=== PATIENT | male | born 1965 | race Caucasian/White ===

== ENCOUNTER 2016-12-07 09:14 | Emergency (ER) | payer OTHER ==
[~2016-12-07] VITALS: Ht 175.3 cm; Wt 84.0 kg
[~2016-12-07 09:14] MED LIST: DICL1GEL TOPICAL
[2016-12-07 09:22] VITALS: BP 163/98; PULSE 100; RESP 16; TEMP 97.8; O2SAT 97
[2016-12-07 09:25] VITALS: BP 163/98; PULSE 100; RESP 16; TEMP 97.8; O2SAT 97
[2016-12-07] MEDS ORDERED: SODIUM CHLORIDE 0.9% FLUSH 10 ML FLUSH IVF PRN (09:45)
[2016-12-07 10:05] VITALS: O2SAT 98
[2016-12-07 10:16] LABS: AUTOMATED NEUTROPHIL # 7.9 TH/MM3 (1.8-7.7); BASOPHIL % 0.5 % (0.0-2.0); EOSINOPHIL # 0.1 TH/MM3 (0-0.4); EOSINOPHIL % 0.7 % (0.0-4.0); HEMATOCRIT 45.2 % (39.0-51.0); HEMO FLAGS DIFF FINAL; LYMPH % 17.3 % (9.0-44.0); LYMPHOCYTE # 1.8 TH/MM3 (1.0-4.8); MEAN CELL VOLUME 90.2 FL (80.0-100.0); MEAN CORPUSCULAR HEMOGLOBIN 31.8 PG (27.0-34.0); MEAN CORPUSCULAR HGB CONC 35.3 % (32.0-36.0); MONO % 6.7 % (0.0-8.0); NEUT % 74.8 % (16.0-70.0); PLATELET COUNT 299 TH/MM3 (150-450); RED BLOOD COUNT 5.01 MIL/MM3 (4.50-5.90); RED CELL DISTRIBUTION WIDTH 11.8 % (11.6-17.2); WHITE BLOOD COUNT 10.6 TH/MM3 (4.0-11.0)
[2016-12-07 10:43] LABS: ANION GAP 7 MEQ/L (5-15); BICARBONATE 29.5 MEQ/L (21.0-32.0); BLOOD UREA NITROGEN 8 MG/DL (7-18); CHLORIDE 104 MEQ/L (98-107); GLOMERULAR FILTRATION RATE 93 ML/MIN (>89); SODIUM (NA) 140 MEQ/L (136-145)
[2016-12-07] MEDS ORDERED: OXYC30TA PO (11:12)
[2016-12-07] MEDS ORDERED: POTASSIUM CHLORIDE 25 MEQ EFFERVESCENT TAB PO ONE (12:30)
[2016-12-07] MEDS ORDERED: SODIUM CHLOR 0.9% 1000 ML INJ 1,000 ML IV ONE (12:30)
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
[2016-12-07 16:10] LABS: AMPHETAMINE, URINE NEG (NEG); BARBITURATES, URINE NEG (NEG); COCAINE, URINE POS (NEG)
[2016-12-07 16:45] VITALS: BP 135/74
== END 2016-12-07 16:49 | disposition home or self-care (01) ==
LOC: NEPE 09:14
DX: R40.4 Transient alteration of awareness (principal); E87.6 Hypokalemia
CPT/HCPCS: 80048; 80307; 85025; 99284; J7030

== ENCOUNTER 2017-09-17 13:38 | Emergency (ER) | payer OTHER ==
[~2017-09-17] VITALS: Ht 175.3 cm; Wt 90.0 kg
[~2017-09-17 13:38] MED LIST changes: -DICL1GEL TOPICAL; +OXYC30TA PO
[2017-09-17 13:58] VITALS: BP 104/56; PULSE 112; RESP 17; TEMP 97.5; O2SAT 97
--- NOTE | 2017-09-17 14:07 | PD ---
HPI Chief Complaint: Skin Problem Time Seen by Provider: 14:03 Travel History International Travel<30 days: No Contact w/Intl Traveler<30days: No Traveled to known affect area: No History of Present Illness HPI 51-year-old male, presents emergency department with erythematous, tender, swollen area on the left lateral forearm which has been developing over the past several days. Patient denies IV drug use or history of MRSA in the past. He states he has had "insect bites" in the past. Patient denies fever, chills, but has pain more than itching in this area which is more swollen today. He denies any other symptoms. No known drug allergies. PFSH Past Medical History Arthritis: Yes Anxiety: Yes Diminished Hearing: No Past Surgical History Other Surgery: Yes (BACK FUSION L SPINE, RIGHT SHOULDER X2) Social History Alcohol Use: Yes (OCC) Tobacco Use: Yes (COCAINE YESTERDAY 12/06/16) Substance Use: Yes Allergies-Medications (Allergen,Severity, Reaction): Coded Allergies: No Known Allergies (Unverified , 12/07/16) Reported Meds & Prescriptions Reported Meds & Active Scripts Active Reported Oxycodone (Oxycodone HCl) 30 Mg Tab 30 Mg PO Q6H PRN Review of Systems Except as stated in HPI: all other systems reviewed are Neg General / Constitutional: No: Fever, Chills Eyes: No: Visual changes HENT: No: Headaches Cardiovascular: No: Chest Pain or Discomfort Respiratory: No: Shortness of Breath Gastrointestinal: No: Abdominal Pain Genitourinary: No: Dysuria Musculoskeletal: No: Pain Skin: Positive Lesions, No Rash Neurologic: No: Weakness Psychiatric: No: Depression Endocrine: No: Polydipsia Hematologic/Lymphatic: No: Easy Bruising Physical Exam Narrative GENERAL: Patient appears in no acute distress per SKIN: Warm and dry. Normal color. Normal turgor. No obvious signs of puncture wounds. Patient has oblong warm, erythematous, indurated lesion to the right lateral forearm measuring 3" x 2", without streaking proximally. No appreciable abscess is noted. HEAD: Atraumatic. Normocephalic. EYES: Pupils equal and round. No scleral icterus. No injection or drainage. ENT: No nasal bleeding or discharge. Mucous membranes pink and moist. Pharynx is clear. Airways patent. NECK: Trachea midline. Supple and nontender CARDIOVASCULAR: Regular rate and rhythm. RESPIRATORY: No accessory muscle use. Clear to auscultation. Breath sounds equal bilaterally. MUSCULOSKELETAL: Extremities without clubbing, cyanosis, or edema. No obvious deformities. Normal range of motion and strength and sensation. Vascular exam is normal. No palpable lymphadenopathy in the left extremity. NEUROLOGICAL: Awake and alert. No obvious cranial nerve deficits. Motor grossly within normal limits. Five out of 5 muscle strength in the arms and legs. Normal speech. PSYCHIATRIC: Appropriate mood and affect; insight and judgment normal. Data Data Last Documented VS Vital Signs Date Time Temp Pulse Resp B/P (MAP) Pulse Ox O2 Delivery O2 Flow Rate FiO2 09/17/17 13:58 97.5 112 17 104/56 (72) 97 Orders Orders Sulfamet-Trimeth Ds 800-160 Mg (Bactrim (09/17/17 14:15) Cephalexin (Keflex) (09/17/17 14:15) Ibuprofen (Motrin) (09/17/17 14:15) [facility] Medical Decision Making Medical Screen Exam Complete: Yes Emergency Medical Condition: Yes Differential Diagnosis Insect bite. Cellulitis. MRSA. Early abscess. Narrative Course No drainable abscesses appreciated at this time. Patient is given Bactrim DS twice daily 10 days. Patient is given Keflex 500 mg 3 times daily 10 days Patient is given ibuprofen 800 mg 3 times daily with food as needed Patient is instructed to use hot compresses to the affected area frequently through the day. Patient is to follow-up if drainable abscess develops. Diagnosis Primary Impression: Cellulitis of right forearm Patient Instructions: Cellulitis (ED), General Instructions, MRSA (Methicillin- Resistant Staphylococcus Aureus) (ED) Additional Instructions: Patient is given Bactrim DS twice daily 10 days. Patient is given Keflex 500 mg 3 times daily 10 days Patient is given ibuprofen 800 mg 3 times daily with food as needed Patient is instructed to use hot compresses to the affected area frequently through the day. Patient is to follow-up if drainable abscess develops. Med/Other Pt SpecificInfo: Prescription(s) given Scripts Sulfamethoxazole-Trimethoprim (Bactrim DS) 800-160 Mg Tab 1 TAB PO BID for Infection, #20 TAB 0 Refills Prov: Rubin Barker MD 09/17/17 Cephalexin (Keflex) 500 Mg Cap 500 MG PO Q8H for Infection, #30 CAP 0 Refills Prov: Rubin Barker MD 09/17/17 Ibuprofen (Ibuprofen) 800 Mg Tab 800 MG PO Q8H Y for Pain/Inflammation, #60 TAB 0 Refills Prov: Rubin Barker MD 09/17/17 Disposition: 01 DISCHARGE HOME Condition: Stable Partha Joe Sep 17, 2017 14:07
[2017-09-17] MEDS ORDERED: IBUP1TAB7 PO (14:12)
[2017-09-17] MEDS ORDERED: CEPH-460 PO (14:12)
[2017-09-17] MEDS ORDERED: BACT800T5 PO (14:12)
[2017-09-17] MEDS ORDERED: IBUPROFEN 800 MG TAB PO ONE (14:15)
[2017-09-17] MEDS ORDERED: CEPHALEXIN MONOHYDRATE 500 MG CAP PO ONE (14:15)
[2017-09-17] MEDS ORDERED: SULFAMETHOXAZOLE-TRIMETHOPRIM DS 800-160 MG TAB PO ONE (14:15)
== END 2017-09-17 14:41 | disposition home or self-care (01) ==
LOC: NEPK 13:38
DX: L03.113 Cellulitis of right upper limb (principal)
CPT/HCPCS: 99283

== ENCOUNTER 2017-09-29 13:34 | Emergency (ER) | payer OTHER ==
[~2017-09-29] VITALS: Ht 175.3 cm; Wt 90.9 kg
[~2017-09-29 13:34] MED LIST changes: +BACT800T5 PO; +CEPH-460 PO; +IBUP1TAB7 PO
[2017-09-29 13:39] VITALS: BP 101/59; PULSE 88; RESP 18; TEMP 97.3; O2SAT 96
[2017-09-29] MEDS ORDERED: LIDOCAINE 1%/EPINEPHrine 1:100,000 SOLN 50 ML VIAL INFIL ONE (14:00)
[2017-09-29] MEDS ORDERED: CLIN300C5 PO (14:01)
--- NOTE | 2017-09-29 14:04 | PD ---
HPI Chief Complaint: Skin Problem Time Seen by Provider: 13:44 Travel History International Travel<30 days: No Contact w/Intl Traveler<30days: No Traveled to known affect area: No History of Present Illness HPI 51-year-old male presents for evaluation area of redness and swelling the right forearm. It started 2 weeks ago. He was seen here on September 17 and diagnosed with cellulitis of the right forearm and prescribed Bactrim and Keflex which she has been using. Reports increased centralized soft tissue swelling that is what prompted evaluation today. Denies any drainage, fevers or chills. Denies any IV drug use. Denies any trauma to the skin over the arm. He has no other complaints. PFSH Past Medical History Arthritis: Yes Anxiety: Yes Diminished Hearing: No Past Surgical History Other Surgery: Yes (BACK FUSION L SPINE, RIGHT SHOULDER X2) Social History Alcohol Use: Yes (OCC) Tobacco Use: Yes (COCAINE YESTERDAY 12/06/16) Substance Use: Yes Allergies-Medications (Allergen,Severity, Reaction): Coded Allergies: No Known Allergies (Unverified , 12/07/16) Reported Meds & Prescriptions Reported Meds & Active Scripts Active Clindamycin (Clindamycin HCl) 300 Mg Cap 300 Mg PO TID Bactrim DS (Sulfamethoxazole-Trimethoprim) 800-160 Mg Tab 1 Tab PO BID Keflex (Cephalexin) 500 Mg Cap 500 Mg PO Q8H Ibuprofen 800 Mg Tab 800 Mg PO Q8H PRN Reported Oxycodone (Oxycodone HCl) 30 Mg Tab 30 Mg PO Q6H PRN Review of Systems Except as stated in HPI: all other systems reviewed are Neg Physical Exam Narrative GENERAL: Well-developed well-nourished male in no acute distress SKIN: Warm and dry. There is a fluctuant abscess in the right forearm without drainage. HEAD: Atraumatic. Normocephalic. CARDIOVASCULAR: Regular rate and rhythm. No murmur appreciated. RESPIRATORY: No accessory muscle use. Clear to auscultation. Breath sounds equal bilaterally. MUSCULOSKELETAL: No obvious deformities. No clubbing. No cyanosis. No edema. Data Data Last Documented VS Vital Signs Date Time Temp Pulse Resp B/P (MAP) Pulse Ox O2 Delivery O2 Flow Rate FiO2 09/29/17 13:39 97.3 88 18 101/59 (73) 96 Orders Orders Lidocai-Epi 1%-1:100,000 Inj (Xylocaine- (09/29/17 14:00) Wound Culture And Gram Stain (09/29/17 13:47) MDM Medical Decision Making Medical Screen Exam Complete: Yes Emergency Medical Condition: Yes Medical Record Reviewed: Yes Differential Diagnosis Abscess, cellulitis, sarcoma, cyst Narrative Course The patient verbally consented to incision and drainage of the right forearm abscess. Wound culture was performed. Pending wound culture results the patient will be started on clindamycin. Procedures Procedure Narrative INCISION AND DRAINAGE OF ABSCESS: The area was prepped and was sterilely draped. A subcutaneous wheal of 1% Xylocaine with epinephrine] with a total number 5 mL was used to anesthetize the area. The area was properly anesthetized. A number 11 scalpel was used to make a 1.5 -cm incision across the area of the abscess. Cultures were obtained. The abscess was drained an irrigated with normal saline. Diagnosis Primary Impression: Abscess of right forearm Additional Instructions: Medication as prescribed. Wash the area with warm soap and water 2-3 times daily. Follow-up in 2 weeks with primary care physician. Return for any acutely new or worsening symptoms. Med/Other Pt SpecificInfo: Prescription(s) given, Wound Care Scripts Clindamycin (Clindamycin) 300 Mg Cap 300 MG PO TID for Infection, #30 CAP 0 Refills Prov: Douglas Hernández MD 09/29/17 Disposition: 01 DISCHARGE HOME Condition: Stable Aneudy Sanchez Sep 29, 2017 14:04
== END 2017-09-29 14:32 | disposition home or self-care (01) ==
LOC: NEPK 13:34
DX: L02.413 Cutaneous abscess of right upper limb (principal)
CPT/HCPCS: 10060; 86403; 87070; 87186

== ENCOUNTER 2017-12-18 16:24 | Inpatient (IN) ==
[2017-12-18] MEDS ORDERED: Ibuprofen 600 MG Tablet PO ONE (17:00)
[2017-12-18] MEDS ORDERED: Vancomycin Inj 1,000 MG in Sodium Chlor 0.9% Inj 250 ML IV.SIG STA (17:00)
[2017-12-18] MEDS ORDERED: Piperacil/Tazo 4.5 GM Premix 4.5 GM/100 ML BAG IV.SIG STA (17:00)
--- NOTE | 2017-12-18 17:10 | ED ---
HPI General Chief complaint: Skin/Abscess/Foreign Body Stated complaint: Spider bite Time Seen by Provider: 12/18/17 17:00 Source: patient Mode of arrival: ambulatory Limitations: no limitations History of Present Illness HPI narrative: Per patient he felt a sting last night he swiped at the area over his left forearm and noticed that it was red in appearance. Patient stated that he went to sleep and then when he woke up this morning he noticed that his forearm area started to swell, and later on throughout the day he started to notice that started to come to ahead and that he was growing in size very quickly MD complaint: insect bite/sting and abscess/boil Onset (ago): day(s) (1) Tetanus Immunization: <5 Years Location: LUE (Forearm left) Severity: moderate Severity scale (1-10): 8 Quality: sharp Pain Consistency: constant Relieving factors: none Exacerbating factors: none Context: other Associated symptoms: fever, rigors and myalgias Treatments prior to arrival: none Related Data Home Medications Medication Instructions Recorded Confirmed No Known Home Medications 12/18/17 12/18/17 Allergies Allergy/AdvReac Type Severity Reaction Status Date / Time No Known Allergies Allergy Verified 12/18/17 16:57 Review of Systems Except as stated in HPI: all other systems reviewed are negative PMFSH History History Provided By: Patient Medical History Medical History Patient denies medical problems (Acute) Surgical History Surgical History History of shoulder surgery (Acute) History of spinal surgery (Acute) Social History Social History Substance History: No History of Abuse Second Hand Smoke Exposure: Yes Smoking Status: Current some day smoker Tobacco Type: Cigarettes How Often Do You Have a Drink Containing Alcohol: Monthly or less Recent Travel in [facility] within the Last 8 Weeks: No Recent Out of Country Travel within the Last 8 Weeks: No Exam Narrative Exam Narrative: GENERAL: Well-nourished, well-developed patient in no apparent distress. SKIN: Warm and dry. HEAD: Atraumatic. Normocephalic. EYES: Pupils equal and round. No scleral icterus. No injection or drainage. ENT: No nasal bleeding or discharge. Mucous membranes pink and moist. NECK: Trachea midline. No JVD. CARDIOVASCULAR: Regular rate and rhythm. no rubs or gallops RESPIRATORY: No accessory muscle use. Clear to auscultation. Breath sounds equal bilaterally. GASTROINTESTINAL: Abdomen soft, non-tender, nondistended. No rebound or guarding MUSCULOSKELETAL: Extremities without clubbing, cyanosis, or edema. No obvious deformities. And near the left antecubital fossa chest inferior to it is an area of erythema, as well as an area of induration with a diameter of 10 cm, and an area about the size of a quarter that is necrotic in appearance.... No palpable crepitus, neg [place] sign NEUROLOGICAL: Awake and alert. No obvious cranial nerve deficits. Motor grossly within normal limits. Five out of 5 muscle strength in the arms and legs. Normal speech. PSYCHIATRIC: Appropriate mood and affect; insight and judgment normal. Course Initial Documented Vital Signs Temperature 102.1 F H 12/18/17 16:36 Pulse Rate 124 H 12/18/17 16:36 Respiratory Rate 20 12/18/17 16:36 Blood Pressure 128/62 12/18/17 16:36 Pulse Oximetry 98 12/18/17 16:36 Last Documented Vital Signs Temperature 99.1 F 12/18/17 18:19 Pulse Rate 108 H 12/18/17 18:19 Respiratory Rate 18 12/18/17 18:19 Blood Pressure 138/81 12/18/17 18:19 Pulse Oximetry 99 12/18/17 18:19 Critical Care Time Critical Care Time: Yes Total Critical Care Time: 30 Attestation: Aggregate critical care time was 30 minutes. Time to perform other separately billable procedures was not included in the critical care time. My time did not include minutes spent treating any other patients simultaneously or on activities that did not directly contribute to the patient's treatment. The services I provided to this patient were to treat and/or prevent clinically significant deterioration that could result in: [Septic shock, organ dysfunction, permanent disability, ] I provided critical care services requiring my management, as noted below: Chart data review, documentation time, medication orders and management, vital sign assessments/reviewing monitor data, ordering and reviewing lab tests, ordering and interpreting/reviewing x-rays and diagnostic studies, care of the patient and discussion of the patient with the admitting physicians. Medical Decision Making Differential Diagnosis Differential Diagnosis: Sepsis versus cellulitis versus Medical Records Medical records reviewed: Yes I reviewed the patient's medical records. Lab Data Lab results reviewed: Yes I reviewed the patient's lab results. Result diagrams: 12/18/17 17:10 12/18/17 17:10 Lab Results 12/18/17 12/18/17 12/18/17 Range/Units 17:10 17:10 17:10 WBC 14.4 H (4.0-11.0) th/mm3 RBC 4.62 (4.50-5.90) mil/mm3 Hgb 14.3 (13.0-17.0) gm/dL Hct 42.1 (39.0-51.0) % MCV 91.1 (80.0-100.0) fL MCH 31.0 (27.0-34.0) pg MCHC 34.0 (32.0-36.0) % RDW 13.2 (11.6-17.2) % Plt Count 209 (150-450) th/mm3 MPV 8.1 (7.0-11.0) fL Neut % (Auto) 79.5 H (16.0-70.0) % Lymph % (Auto) 8.0 L (9.0-44.0) % [place] % (Auto) 11.9 H (0.0-8.0) % Eos % (Auto) 0.1 (0.0-4.0) % Baso % (Auto) 0.5 (0.0-2.0) % Neut # (Auto) 11.5 H (1.8-7.7) th/mm3 Lymph # (Auto) 1.2 (1.0-4.8) th/mm3 [place] # (Auto) 1.7 H (0.0-0.9) th/mm3 Eos # (Auto) 0.0 (0.0-0.4) th/mm3 Baso # (Auto) 0.1 (0.0-0.2) th/mm3 WBC Differential . Differential Comment Auto diff final Sodium 136 (136-145) meq/L Potassium 3.5 (3.5-5.1) meq/L Chloride 101 (98-107) meq/L Carbon Dioxide 26.3 (21.0-32.0) meq/L Anion Gap 9 (5-15) meq/L BUN 9 (7-18) mg/dL Creatinine 1.14 (0.60-1.30) mg/dL Estimated GFR 67 L (>89) mL/min POC Glucose (68-110) mg/dl Random Glucose 99 (74-106) mg/dL Lactic Acid 2.1 H (0.4-2.0) mmol/L Calcium 8.7 (8.5-10.1) mg/dL Total Bilirubin 0.8 (0.2-1.0) mg/dL AST 170 H (15-37) U/L ALT 416 H (12-78) U/L Alkaline Phosphatase 75 (45-117) U/L Total Protein 6.6 (6.4-8.2) g/dL Albumin 3.1 L (3.4-5.0) g/dL 12/18/17 Range/Units 17:55 WBC (4.0-11.0) th/mm3 RBC (4.50-5.90) mil/mm3 Hgb (13.0-17.0) gm/dL Hct (39.0-51.0) % MCV (80.0-100.0) fL MCH (27.0-34.0) pg MCHC (32.0-36.0) % RDW (11.6-17.2) % Plt Count (150-450) th/mm3 MPV (7.0-11.0) fL Neut % (Auto) (16.0-70.0) % Lymph % (Auto) (9.0-44.0) % [place] % (Auto) (0.0-8.0) % Eos % (Auto) (0.0-4.0) % Baso % (Auto) (0.0-2.0) % Neut # (Auto) (1.8-7.7) th/mm3 Lymph # (Auto) (1.0-4.8) th/mm3 [place] # (Auto) (0.0-0.9) th/mm3 Eos # (Auto) (0.0-0.4) th/mm3 Baso # (Auto) (0.0-0.2) th/mm3 WBC Differential Differential Comment Sodium (136-145) meq/L Potassium (3.5-5.1) meq/L Chloride (98-107) meq/L Carbon Dioxide (21.0-32.0) meq/L Anion Gap (5-15) meq/L BUN (7-18) mg/dL Creatinine (0.60-1.30) mg/dL Estimated GFR (>89) mL/min POC Glucose 119 H (68-110) mg/dl Random Glucose (74-106) mg/dL Lactic Acid (0.4-2.0) mmol/L Calcium (8.5-10.1) mg/dL Total Bilirubin (0.2-1.0) mg/dL AST (15-37) U/L ALT (12-78) U/L Alkaline Phosphatase (45-117) U/L Total Protein (6.4-8.2) g/dL Albumin (3.4-5.0) g/dL Imaging Data Radiologist's impression: Chest X-Ray 12/18/17 17:00 CONCLUSION: No evidence of acute cardiopulmonary process. Discharge Plan Discharge Disposition Patient Disposition: 30 Still Patient Discharge Condition Condition: Stable Discharge Details Diagnosis: Cellulitis, SIRS (systemic inflammatory response syndrome) Physicians Team ED Provider: Rubin Barker Rxs /Orders / Referrals /Forms Prescriptions: No Action No Known Home Medications RF: 0 Status ED Status: With Doctor
[2017-12-18 17:47] LABS: Baso # (Auto) 0.1 th/mm3 (0.0-0.2); Baso % (Auto) 0.5 % (0.0-2.0); Eos % (Auto) 0.1 % (0.0-4.0); Hematocrit 42.1 % (39.0-51.0); Hemoglobin 14.3 gm/dL (13.0-17.0); Lymph # (Auto) 1.2 th/mm3 (1.0-4.8); Mean Corpuscular Volume 91.1 fL (80.0-100.0); Mean Platelet Volume 8.1 fL (7.0-11.0); Mono # (Auto) 1.7 th/mm3 (0.0-0.9); Mono % (Auto) 11.9 % (0.0-8.0); Neut # (Auto) 11.5 th/mm3 (1.8-7.7); Neut % (Auto) 79.5 % (16.0-70.0); Platelet Count 209 th/mm3 (150-450); Red Blood Count 4.62 mil/mm3 (4.50-5.90); Red Cell Distribution Width 13.2 % (11.6-17.2); White Blood Count 14.4 th/mm3 (4.0-11.0)
[2017-12-18 18:09] LABS: Alanine Aminotransferase 416 U/L (12-78); Albumin 3.1 g/dL (3.4-5.0); Anion Gap 9 meq/L (5-15); Aspartate Aminotransferase 170 U/L (15-37); Blood Urea Nitrogen 9 mg/dL (7-18); Calcium 8.7 mg/dL (8.5-10.1); Carbon Dioxide 26.3 meq/L (21.0-32.0); Chloride 101 meq/L (98-107); Glomerular Filtration Rate 67 mL/min (>89); Glucose,Random 99 mg/dL (74-106); Potassium 3.5 meq/L (3.5-5.1); Sodium 136 meq/L (136-145)
--- NOTE | 2017-12-18 18:09 | XR ---
EXAM DATE: 12/18/2017 6:06 PM EDT AGE/SEX: 52 years / Male INDICATIONS: Fever. CLINICAL DATA: This is the patient's initial encounter. Patient reports that signs and symptoms have been present for 1 day and indicates a pain score of 0/10. MEDICAL/SURGICAL HISTORY: None. . L-spine. Right shoulder. [place] [facility] [place]. . FINDINGS: A single AP view of the chest demonstrates the lungs to be symmetrically aerated without evidence of mass, infiltrate or effusion. The cardiomediastinal contours are unremarkable. Osseous structures a re intact. CONCLUSION: No evidence of acute cardiopulmonary process. Electronically signed by: Brandon Arguelles MD 12/18/2017 6:08 PM EDT
[2017-12-18 18:12] LABS: Alkaline Phosphatase 75 U/L (45-117); Total Protein 6.6 g/dL (6.4-8.2)
[2017-12-18] MEDS: Sod Chloride 0.9% Inj 1,000 ML IV.CONT SCH ×2 (18:49→19:12)
[2017-12-18] MEDS ORDERED: Acetaminophen 325 MG Tablet PO PRN (19:03)
[2017-12-18] MEDS ORDERED: Bisacodyl 10 MG Supp RECTAL PRN (19:03)
--- NOTE | 2017-12-18 19:06 | P.HPIM ---
History of Present Illness Primary Care Physician: No Primary Care Physician History of Present Illness: This is a 52-year-old male with no reported PMH who presented to the ER with complaints of left arm swelling/redness x1 day. States he was bitten by a spider yesterday, now w/ significant redness/swelling and pustule w/ drainage. Denies fever or chills. Waldemar IVDU. On arrival, BP 128/62, HR 124, O2 sat 98% on RA, Temp 102.1. WBC 14.4. Chemistry essentially unremarkable except for GFR 67. Lactic Acid 2.1. LFTs elevated, new in comparison to labs from 2015. S/p Blood/Wound Cultures, Vanc/Zosyn. - Diagnosis (1) Sepsis (2) Cellulitis (3) Elevated LFTs Review of Systems All other systems reviewed negative except as stated in [facility] - History History Provided By: Patient - Medical History Medical History: Medical History (Last Reviewed 12/18/17 @ 17:04 by Rubin Barker) Patient denies medical problems - Surgical History Surgical History: Surgical History (Last Reviewed 12/18/17 @ 17:04 by Rubin Barker) History of shoulder surgery History of spinal surgery - Tobacco History Second Hand Smoke Exposure: Yes Tobacco Use In Past 30 Days: Yes Smoking Status: Current some day smoker Tobacco Type: Cigarettes - Alcohol History How Often Do You Have a Drink Containing Alcohol: Monthly or less - Substance Use History Substance History: No History of Abuse - Travel History Recent Travel in the [place] Within the Last 8 Weeks: No Recent Travel Out of the Country Within the Last 8 Weeks: No - Immunization History Tetanus Immunization: <5 Years Hx Influenza Vaccine This Season: No Medications and Allergies Active Medications: Active Medications Acetaminophen (Tylenol) 650 mg PO Q4H PRN PRN Reason: Temp > 100.4 Hydrocodone Bitart/Acetaminophen ([place] 5/325) 1 tab PO Q4H PRN PRN Reason: PAIN 3-5 Al Hydroxide/Mg Hydroxide (Milk Of Magnesia Liq) 30 ml PO Q12H PRN PRN Reason: Mild Constipation Bisacodyl (Dulcolax Supp) 10 mg RECTAL DAILY PRN PRN Reason: SEVERE CONSITIPATION Sodium Chloride (Ns Inj) 1,000 mls @ 100 mls/hr IV.CONT .Q10H [facility] Last Admin: 12/18/17 18:49 Dose: 100 mls/hr Cefepime HCl 1,000 mg/ Sodium (Chloride) 100 mls @ 200 mls/hr IV.SIG Q12H [facility] Sodium Chloride (Ns Inj) 1,000 mls @ 100 mls/hr IV.CONT .Q10H [facility] Pharmacy Profile Note (Vancomycin Consult Pharmacy) 0 mls @ 0 mls/hr OTHER UNSCH [facility] Lactulose (Lactulose Liq) 30 ml PO DAILY PRN PRN Reason: SEVERE CONSITIPATION Metoclopramide HCl (Reglan Inj) 5 mg IV.PUSH Q6HR PRN; Protocol PRN Reason: NAUSEA OR VOMITING Morphine Sulfate (Morphine Inj) 2 mg IV.PUSH Q4H PRN PRN Reason: PAIN 6-10 Senna/Docusate Sodium (Chikis-Colace) 1 tab PO BID [facility] Sennosides (Senokot) 17.2 mg PO Q12H PRN PRN Reason: Moderate Constipation Temazepam (Restoril) 15 mg PO HS PRN PRN Reason: INSOMNIA Allergies Allergy/AdvReac Type Severity Reaction Status Date / Time No Known Allergies Allergy Verified 12/18/17 16:57 Home Medications Medication Instructions Recorded Confirmed Type No Known Home Medications 12/18/17 12/18/17 History Exam Vital signs: Vital Signs 12/18/17 16:36 12/18/17 17:00 12/18/17 18:19 Temperature 102.1 F H 99.1 F Pulse Rate 124 H 116 H 108 H Respiratory Rate 20 18 Blood Pressure 128/62 138/81 Pulse Oximetry 98 98 99 Intake & Output 12/18/17 12/18/17 12/19/17 06:59 18:59 06:59 Intake Total 100 / 100 Balance 100 / 100 Weight 95.254 kg Intake: IV 100 / 100 Zosyn 4.5 GM Premix 4.5 gm In 100 / 100 100 ml @ 200 mls/hr IV.SIG STAT STA Rx#:[id number] Narrative: PE: GENERAL: Middle-aged white male in no acute distress. HEENT: PERRLA, EOMI. No scleral icterus or conjunctival pallor. No lid lag or facial droop. CARDIOVASCULAR: Regular rate and rhythm. No obvious murmurs to auscultation. No chest tenderness to palpation. RESPIRATORY: No obvious rhonchi or wheezing. Clear to auscultation. Breath sounds equal bilaterally. GASTROINTESTINAL: Abdomen soft, non-tender, nondistended. BS normal. MUSCULOSKELETAL: Extremities without clubbing, cyanosis, or edema. No obvious deformities. LUE w/ draining pustule, left antecubital region, foul swelling, + surrounding erythema/edema. Pulses intact. NEUROLOGICAL: Awake, alert and oriented x4. No focal neurologic deficits. Moving both upper and lower extremities spontaneously. Results - Labs CBC & Chem 7: 12/18/17 17:10 12/18/17 17:10 Labs: Short CBC 12/18/17 Range/Units 17:10 WBC 14.4 H (4.0-11.0) th/mm3 Hgb 14.3 (13.0-17.0) gm/dL Hct 42.1 (39.0-51.0) % Plt Count 209 (150-450) th/mm3 BMP 12/18/17 17:10 Sodium 136 Potassium 3.5 Chloride 101 Carbon Dioxide 26.3 BUN 9 Creatinine 1.14 Calcium 8.7 Liver Function 12/18/17 Range/Units 17:10 Total Bilirubin 0.8 (0.2-1.0) mg/dL AST 170 H (15-37) U/L ALT 416 H (12-78) U/L Alkaline Phosphatase 75 (45-117) U/L Albumin 3.1 L (3.4-5.0) g/dL - Imaging Impressions Chest X-Ray 12/18/17 17:00 CONCLUSION: No evidence of acute cardiopulmonary process. Caprini VTE Risk Assessment Caprini VTE Risk Assessment: No/Low Risk (score <= 1) Caprini Risk Assessment Model: Point Value = 1 Point Value = 2 Point Value = 3 Point Value = 5 Age 41-60 Minor surgery BMI > 25 kg/m2 Swollen legs Varicose veins or History of unexplained or recurrent spontaneous Oral contraceptives or hormone replacement Sepsis (< 1 month) Serious lung disease, including pneumonia (< 1 month) Abnormal pulmonary function Acute myocardial infarction Congestive heart failure (< 1 month) History of inflammatory bowel disease Medical patient at bed rest Age 61-74 Arthroscopic surgery Major open surgery (> 45 min) Laparoscopic surgery (> 45 min) Malignancy Confined to bed (> 72 hours) Immobilizing plaster cast Central venous access Age >= 75 History of VTE Family history of VTE Factor V Leiden Prothrombin [id number] Lupus anticoagulant Anticardiolipin antibodies Elevated serum homocysteine Heparin-induced thrombocytopenia Other congenital or acquired thrombophilia Stroke (< 1 month) Elective arthroplasty Hip, pelvis, or leg fracture Acute spinal cord injury (< 1 month) Prophylaxis Regimen: Total Risk Factor Score Risk Level Prophylaxis Regimen 0-1 Low Early ambulation 2 Moderate Order ONE of the following: *Sequential Compression Device (SCD) *Heparin 5000 units SQ BID 3-4 Higher Order ONE of the following medications: *Heparin 5000 units SQ TID *Enoxaparin/Lovenox 40 mg SQ daily (WT < 150 kg, CrCl > 30 mL/min) *Enoxaparin/Lovenox 30 mg SQ daily (WT < 150 kg, CrCl > 10-29 mL/min) *Enoxaparin/Lovenox 30 mg SQ BID (WT < 150 kg, CrCl > 30 mL/min) AND/OR *Sequential Compression Device (SCD) 5 or more Highest Order ONE of the following medications: *Heparin 5000 units SQ TID (Preferred with Epidurals) *Enoxaparin/Lovenox 40 mg SQ daily (WT < 150 kg, CrCl > 30 mL/min) *Enoxaparin/Lovenox 30 mg SQ daily (WT < 150 kg, CrCl > 10-29 mL/min) *Enoxaparin/Lovenox 30 mg SQ BID (WT < 150 kg, CrCl > 30 mL/min) AND *Sequential Compression Device (SCD) Assessment and Plan - Assessment (1) Sepsis Code(s): A41.9 - Sepsis, unspecified organism Status: Acute (2) Cellulitis Code(s): L03.90 - Cellulitis, unspecified Status: Acute (3) Elevated LFTs Code(s): R94.5 - Abnormal results of liver function studies Status: Acute - Plan A/P: 1. Sepsis: Temp 102.1, HR 120's, WBC 14, Lactic Acid 2.1, S/p Blood/Wound Cultures, IV Vanc/Zosyn, follow up cultures, continue IV Abx, CXR w/ no acute findings, images reviewed by me. Check U/a to eval for underlying UTI. 2. Cellulitis: LUE. +pustule, erythema/edema x1 day after being bitten by spider per patient. Follow up cultures, continue w/ IV Abx, analgesics/ antiemetics as needed. May need Gen Sx consult for I&D if no improvement. 3. Elevated LFTs: New in comparison to previous labs from 2016, check Hep panel, UDS, repeat labs in am. 4. DVT Prophylaxis: SCD/Teds 5. Social work for d/c planning as needed 6. Case discussed w/ ER physician at length, labs/records/imaging reviewed by me. (2) Cellulitis Qualifiers: Site of cellulitis: extremity Site of cellulitis of extremity: upper extremity Laterality: left Qualified Code(s): L03.114 - Cellulitis of left upper limb
[2017-12-18] MEDS ORDERED: Vancomycin Consult Pharmacy 1 EACH OTHER SCH (20:00)
[2017-12-18] MEDS: Senna/Docusate Sodium 8.6/50 MG Tablet PO SCH (21:35)
[2017-12-18] MEDS ORDERED: Vancomycin Inj 1,000 MG in Sodium Chlor 0.9% Inj 250 ML IV.SIG ONE (23:00)
[2017-12-19 00:03] LABS: Bilirubin,Urine Negative (Negative); Clarity,Urine Clear (Clear); Color,Urine Straw (Yellw/Straw); Glucose,Urine (UA) Negative (Negative); Leukocyte Esterase,Urine Negative (Negative); Nitrite,Urine Negative (Negative); Specific Gravity,Urine 1.002 (1.002-1.035)
[2017-12-19 00:13] LABS: Amphetamine Screen,Urine Pos (Neg); Barbiturate Screen,Urine Neg (Neg); Cannabinoid Screen,Urine Neg (Neg); Cocaine Screen,Urine Neg (Neg)
[2017-12-19 00:20] LABS: Opiate Screen,Urine Neg (Neg)
[2017-12-19 00:58] LABS: Baso # (Auto) 0.1 th/mm3 (0.0-0.2); Baso % (Auto) 0.5 % (0.0-2.0); Eos # (Auto) 0.1 th/mm3 (0.0-0.4); Eos % (Auto) 0.6 % (0.0-4.0); Hematocrit 41.7 % (39.0-51.0); Hemoglobin 14.2 gm/dL (13.0-17.0); Lymph # (Auto) 1.5 th/mm3 (1.0-4.8); Lymph % (Auto) 11.3 % (9.0-44.0); Mean Corpuscular HGB Conc 34.1 % (32.0-36.0); Mean Corpuscular Hemoglobin 30.7 pg (27.0-34.0); Mean Corpuscular Volume 89.9 fL (80.0-100.0); Mean Platelet Volume 7.8 fL (7.0-11.0); Mono # (Auto) 1.4 th/mm3 (0.0-0.9); Mono % (Auto) 10.4 % (0.0-8.0); Neut # (Auto) 10.5 th/mm3 (1.8-7.7); Neut % (Auto) 77.2 % (16.0-70.0); Platelet Count 201 th/mm3 (150-450); Red Blood Count 4.64 mil/mm3 (4.50-5.90); White Blood Count 13.6 th/mm3 (4.0-11.0)
[2017-12-19 01:21] LABS: Alanine Aminotransferase 383 U/L (12-78); Anion Gap 6 meq/L (5-15); Aspartate Aminotransferase 146 U/L (15-37); Blood Urea Nitrogen 7 mg/dL (7-18); Calcium 8.5 mg/dL (8.5-10.1); Carbon Dioxide 29.3 meq/L (21.0-32.0); Chloride 108 meq/L (98-107); Glomerular Filtration Rate 81 mL/min (>89); Glucose,Random 114 mg/dL (74-106); Potassium 3.2 meq/L (3.5-5.1); Sodium 143 meq/L (136-145)
[2017-12-19 01:23] LABS: Alkaline Phosphatase 72 U/L (45-117); Total Protein 6.6 g/dL (6.4-8.2)
[2017-12-19 02:08] LABS: Hepatitis A IgM Antibody Nonreactive (Nonreactive); Hepatitits B Surface Antigen Nonreactive (Nonreactive)
[2017-12-19] MEDS: Sod Chloride 0.9% Inj 1,000 ML IV.CONT SCH ×3 (04:40→15:48)
[2017-12-19] MEDS: Vancomycin Inj 1,750 MG in Sodium Chlor 0.9% Inj 500 ML IV.SIG SCH (10:11)
[2017-12-19] MEDS: Senna/Docusate Sodium 8.6/50 MG Tablet PO SCH ×2 (10:11→20:38)
[2017-12-19] MEDS ORDERED: Lidocaine PF 1% Inj 5 ML Syringe INFILTRATN ONE (12:00)
[2017-12-19] MEDS ORDERED: Succinylcholine Inj 100 MG/5 ML Syringe IV.PUSH ONE (12:00)
--- NOTE | 2017-12-19 13:16 | P.PNIM ---
Subjective Interval history: Patient reports persistent left forearm swelling and pain. Left forearm wound draining foul-smelling purulence. No fevers. He wants to eat. Physical Exam Vital signs: Vital Signs 12/18/17 16:36 12/18/17 17:00 12/18/17 18:19 Temperature 102.1 F H 99.1 F Pulse Rate 124 H 116 H 108 H Respiratory Rate 20 18 Blood Pressure 128/62 138/81 Pulse Oximetry 98 98 99 12/18/17 19:40 12/18/17 22:00 12/18/17 23:41 Temperature 98.1 F Pulse Rate 74 64 Respiratory Rate 16 18 Blood Pressure 112/59 L Pulse Oximetry 95 12/19/17 00:00 12/19/17 03:41 12/19/17 04:00 Temperature 97.8 F 97.5 F L Pulse Rate 72 59 L 86 Respiratory Rate 18 18 Blood Pressure 117/57 L 109/8 L Pulse Oximetry 96 95 12/19/17 08:00 12/19/17 11:47 Temperature 98.0 F 98.2 F Pulse Rate 71 78 Respiratory Rate 18 20 Blood Pressure 115/63 110/67 Pulse Oximetry 96 95 Intake & Output 12/18/17 12/19/17 12/19/17 18:59 06:59 18:59 Intake Total 100 / 100 1250 / 1250 Output Total 500 / 500 Balance 100 / 100 750 / 750 Weight 95.254 kg Intake: IV 100 / 100 1250 / 1250 NS Inj 1,000 ML @ 100 mls/hr IV 1000 / 1000 .CONT .Q10H [facility] Rx#:[id number] Zosyn 4.5 GM Premix 4.5 gm In 100 / 100 100 ml @ 200 mls/hr IV.SIG STAT STA Rx#:[id number] Output: Urine 500 / 500 Narrative: GENERAL: Patient appears older than stated age SKIN: Left forearm has a quater size necrotic wound, draining foul smelling pus. CARDIOVASCULAR: Normal rate and regular rhythm without murmurs, gallops, or rubs. RESPIRATORY: Good respiratory efforts. Breath sounds equal and clear to auscultation bilaterally. Results - Labs CBC & Chem 7: 12/19/17 00:38 12/19/17 00:38 Laboratory Results - last 24 hr 12/18/17 12/18/17 12/18/17 17:10 17:10 17:10 WBC 14.4 H RBC 4.62 Hgb 14.3 Hct 42.1 MCV 91.1 MCH 31.0 MCHC 34.0 RDW 13.2 Plt Count 209 MPV 8.1 Neut % (Auto) 79.5 H Lymph % (Auto) 8.0 L [place] % (Auto) 11.9 H Eos % (Auto) 0.1 Baso % (Auto) 0.5 Neut # (Auto) 11.5 H Lymph # (Auto) 1.2 [place] # (Auto) 1.7 H Eos # (Auto) 0.0 Baso # (Auto) 0.1 WBC Differential . Differential Comment Auto diff final Sodium 136 Potassium 3.5 Chloride 101 Carbon Dioxide 26.3 Anion Gap 9 BUN 9 Creatinine 1.14 Estimated GFR 67 L POC Glucose Random Glucose 99 Lactic Acid 2.1 H Calcium 8.7 Total Bilirubin 0.8 AST 170 H ALT 416 H Alkaline Phosphatase 75 Total Protein 6.6 Albumin 3.1 L Urine Color Urine Clarity Urine pH Ur Specific [place] Urine Protein Urine Glucose (UA) Urine Ketones Urine Occult Blood Urine Nitrate Urine Bilirubin Urine Urobilinogen Ur Leukocyte Esterase Urine RBC Urine WBC Micro UA Comment Urine Culture Comments Urine Opiates Screen Ur Barbiturates Screen Ur Amphetamines Screen U Benzodiazepines Scrn Urine Cocaine Screen U Cannabinoids Screen Hepatitis A IgM Ab Hep Bs Antigen Hep B Core IgM Ab Hep C IgG Ab 12/18/17 12/18/17 12/18/17 17:55 23:00 23:00 WBC RBC Hgb Hct MCV MCH MCHC RDW Plt Count MPV Neut % (Auto) Lymph % (Auto) [place] % (Auto) Eos % (Auto) Baso % (Auto) Neut # (Auto) Lymph # (Auto) [place] # (Auto) Eos # (Auto) Baso # (Auto) WBC Differential Differential Comment Sodium Potassium Chloride Carbon Dioxide Anion Gap BUN Creatinine Estimated GFR POC Glucose 119 H Random Glucose Lactic Acid Calcium Total Bilirubin AST ALT Alkaline Phosphatase Total Protein Albumin Urine Color Straw Urine Clarity Clear Urine pH 6.0 Ur Specific [place] 1.002 Urine Protein Negative Urine Glucose (UA) Negative Urine Ketones Negative Urine Occult Blood Negative Urine Nitrate Negative Urine Bilirubin Negative Urine Urobilinogen Less than 2 Ur Leukocyte Esterase Negative Urine RBC Less than 1 Urine WBC Less than 1 Micro UA Comment Culture not ind Urine Culture Comments Culture not ind Urine Opiates Screen Neg Ur Barbiturates Screen Neg Ur Amphetamines Screen Pos H U Benzodiazepines Scrn Neg Urine Cocaine Screen Neg U Cannabinoids Screen Neg Hepatitis A IgM Ab Hep Bs Antigen Hep B Core IgM Ab Hep C IgG Ab 12/19/17 12/19/17 12/19/17 00:38 00:38 00:38 WBC 13.6 H RBC 4.64 Hgb 14.2 Hct 41.7 MCV 89.9 MCH 30.7 MCHC 34.1 RDW 13.0 Plt Count 201 MPV 7.8 Neut % (Auto) 77.2 H Lymph % (Auto) 11.3 [place] % (Auto) 10.4 H Eos % (Auto) 0.6 Baso % (Auto) 0.5 Neut # (Auto) 10.5 H Lymph # (Auto) 1.5 [place] # (Auto) 1.4 H Eos # (Auto) 0.1 Baso # (Auto) 0.1 WBC Differential . Differential Comment Auto diff final Sodium 143 Potassium 3.2 L Chloride 108 H Carbon Dioxide 29.3 Anion Gap 6 BUN 7 Creatinine 0.97 Estimated GFR 81 L POC Glucose Random Glucose 114 H Lactic Acid 0.7 Calcium 8.5 Total Bilirubin 0.9 AST 146 H ALT 383 H Alkaline Phosphatase 72 Total Protein 6.6 Albumin 3.0 L Urine Color Urine Clarity Urine pH Ur Specific [place] Urine Protein Urine Glucose (UA) Urine Ketones Urine Occult Blood Urine Nitrate Urine Bilirubin Urine Urobilinogen Ur Leukocyte Esterase Urine RBC Urine WBC Micro UA Comment Urine Culture Comments Urine Opiates Screen Ur Barbiturates Screen Ur Amphetamines Screen U Benzodiazepines Scrn Urine Cocaine Screen U Cannabinoids Screen Hepatitis A IgM Ab Hep Bs Antigen Hep B Core IgM Ab Hep C IgG Ab 12/19/17 00:38 WBC RBC Hgb Hct MCV MCH MCHC RDW Plt Count MPV Neut % (Auto) Lymph % (Auto) [place] % (Auto) Eos % (Auto) Baso % (Auto) Neut # (Auto) Lymph # (Auto) [place] # (Auto) Eos # (Auto) Baso # (Auto) WBC Differential Differential Comment Sodium Potassium Chloride Carbon Dioxide Anion Gap BUN Creatinine Estimated GFR POC Glucose Random Glucose Lactic Acid Calcium Total Bilirubin AST ALT Alkaline Phosphatase Total Protein Albumin Urine Color Urine Clarity Urine pH Ur Specific [place] Urine Protein Urine Glucose (UA) Urine Ketones Urine Occult Blood Urine Nitrate Urine Bilirubin Urine Urobilinogen Ur Leukocyte Esterase Urine RBC Urine WBC Micro UA Comment Urine Culture Comments Urine Opiates Screen Ur Barbiturates Screen Ur Amphetamines Screen U Benzodiazepines Scrn Urine Cocaine Screen U Cannabinoids Screen Hepatitis A IgM Ab Nonreactive Hep Bs Antigen Nonreactive Hep B Core IgM Ab Nonreactive Hep C IgG Ab Reactive H Microbiology 12/18/17 17:10 Abscess - Arm Gram Stain - Final 12/18/17 17:10 Abscess - Arm Wound Culture - Preliminary gram negative rods Beta Strep not A,B or D 12/18/17 17:25 Blood - Peripheral Aerobic Blood Culture - Preliminary No growth in 1 day 12/18/17 17:25 Blood - Peripheral Anaerobic Blood Culture - Preliminary No growth in 1 day 12/18/17 17:10 Blood - Peripheral Aerobic Blood Culture - Preliminary No growth in 1 day 12/18/17 17:10 Blood - Peripheral Anaerobic Blood Culture - Preliminary No growth in 1 day - Imaging Impressions Chest X-Ray 12/18/17 17:00 CONCLUSION: No evidence of acute cardiopulmonary process. Assessment and Plan - Assessment (1) Sepsis Code(s): A41.9 - Sepsis, unspecified organism Status: Acute (2) Cellulitis Code(s): L03.90 - Cellulitis, unspecified Status: Acute (3) Elevated LFTs Code(s): R94.5 - Abnormal results of liver function studies Status: Acute (4) Hepatitis C Code(s): B19.20 - Unspecified viral hepatitis C without hepatic coma Status: Acute - Plan Sepsis secondary to left forearm necrotic wound/probable abscess/cellulitis. Patient reported he was bit by a spider. However he is positive for methamphetamines on tox screen. Suspect IV drug use. -Continue broad-spectrum antibiotics with cefepime and vancomycin. Preliminary culture growing gram-negative rods. -Consult hand surgery for I&D. Hepatitis C/elevated LFTs: -Continue to monitor LFTs. Improving. -Will need outpatient follow-up for hepatitis C treatment. Suspected IV drug use: Patient denies this. Counseling provided on the detrimental effects of drug use. DVT Prophylaxis: SCD/Teds (2) Cellulitis Qualifiers: Site of cellulitis: extremity Site of cellulitis of extremity: upper extremity Laterality: left Qualified Code(s): L03.114 - Cellulitis of left upper limb
--- NOTE | 2017-12-19 16:05 | US ---
EXAM DATE: 12/19/2017 3:24 PM EDT AGE/SEX: 52 years / Male INDICATIONS: Evaluate for abscess. CLINICAL DATA: This is the patient's initial encounter. Patient reports that signs and symptoms have been present for 1 day and indicates a pain score of 5/10. MEDICAL/SURGICAL HISTORY: . Back pain. . Lumbar fusion. COMPARISON: No prior exams available for comparison. FINDINGS: Examination of the patient's left anterior forearm demonstrates mixed echogenic areas which extends f or approximately 3.2 cm probably inflamed tissue without a focal pocket of abscess. CONCLUSION: 1. Inhomogeneous inflamed tissue without focal pocket of abscess. Electronically signed by: Marcie Madsen MD 12/19/2017 4:04 PM EDT
--- NOTE | 2017-12-19 19:08 | ECG ---
Date Performed: 12/19/2017 Time Performed: 08:47:04 PTAGE: 52 years EKG: Sinus rhythm NORMAL ECG Since PREVIOUS TRACING , no significant change noted PREVIOUS TRACIN09/26/2015 17.02 DOCTOR: Josefina Perez Interpretating Date/Time 12/19/2017 19:06:30
[2017-12-19] MEDS ORDERED: Neomycin/Polymyxin G.U. Irrigant 1 ML Ampul ONE (20:09)
[2017-12-19] MEDS ORDERED: Lidocaine PF 2% Inj 10 ML Ampul ONE (20:12)
[2017-12-19] MEDS ORDERED: Bupivacaine PF 0.5% Inj 30 ML Vial ONE (20:12)
--- NOTE | 2017-12-19 20:34 | MB ---
cc: Javy Simpson MD, Srikanth MD DATE: 12/19/2017 REASON FOR CONSULTATION: Abscess, left elbow. HISTORY OF PRESENT ILLNESS: The patient is a 52-year-old right hand dominant male admitted to the hospital with complaints of pain and swelling involving the left elbow, forearm region for the past 2 days. The patient says that he was bitten by a spider and has noticed worsening symptoms. He also complains of foul smelling discharge from the region with an open wound. Denies any history of similar complaints in the past. He denies any history of IV drug abuse. Denies any numbness. Denies any fever or chills. PAST MEDICAL HISTORY: Reviewed. The patient denies any medical problems. PAST SURGICAL HISTORY: Reviewed. He has a history of shoulder and spinal surgery. SOCIAL HISTORY: Significant for smoking. PHYSICAL EXAMINATION: The patient is alert, oriented x3. He is not in acute distress. Examination of left upper extremity reveals open wound over the left forearm/elbow region just distal to the elbow crease measuring about 2 cm in diameter with necrotic skin edges and foul smelling drainage. There is evidence of surrounding swelling, erythema and induration. Purulence is expressed from the wound on pressure over the surrounding indurated area. He has palpable distal pulses. No clinical signs of compartment syndrome of the forearm noted. He is able to make a full fist with the fingers. He has full extension of the fingers. He has intact sensation distally. LABORATORY DATA: His lab work was reviewed. He has a white count of 13.6 and neutrophil shift of 72%. The patient had an ultrasound of the left upper extremity which shows evidence of inflammatory peritonitis mass over the anterior aspect of the left elbow region. ASSESSMENT: A 52-year-old male with an abscess over the left antecubital fossa. PLAN: Take the patient emergently for incision and drainage of abscess. We will continue with IV antibiotics. Javy Simpson MD SE/ , 08:17 PM , 08:33 PM
[2017-12-19] MEDS: Morphine Inj 4 MG/ML Vial IV.PUSH PRN (20:41)
--- NOTE | 2017-12-19 22:00 | P.OP ---
- Preoperative Diagnosis (1) Abscess of antecubital fossa Comment: left - Postoperative Diagnosis (1) Abscess of antecubital fossa Comment: left Date of procedure: 12/19/17 Procedure: incision and drainage/debridement of necrotic skin and subcutaneous tissue of left antecubital fossa abscess Anesthesia: GETA Surgeon: Javy Simpson MD Estimated blood loss (mL): 10 Tourniquet time (min): 18 Pathology: other (swab for culture and sensitivity) Operation and Findings: abscess with multiple pockets over the antecubital fossa with thrombosed vein and necrotic tissue
[2017-12-19] MEDS ORDERED: fentaNYL Citrate Inj 100 MCG/2 ML Ampul ONE ×2 (22:07→22:08)
--- NOTE | 2017-12-19 22:27 | MP ---
cc: Javy Simpson MD, Srikanth MD DATE OF OPERATION: 12/19/2017 PREOPERATIVE DIAGNOSIS: Abscess, left antecubital fossa. POSTOPERATIVE DIAGNOSIS: Abscess, left antecubital fossa. PROCEDURE PERFORMED: Incision, drainage and debridement antecubital fossa, left side. SURGEON: Javy Simpson MD ANESTHESIA: General. ESTIMATED BLOOD LOSS: Minimal. TOURNIQUET TIME: 18 minutes at 250 mmHg. SPECIMENS: Sent for culture and sensitivity. DISPOSITION: To PACU stable. INDICATIONS FOR PROCEDURE: Patient is a 52-year-old male who presented with complaint of spider bite to the left antecubital fossa about 2 days ago. He was admitted overnight for worsening pain and swelling of the left upper extremity. On examination, he had open wound with foul smelling drainage from the antecubital fossa. He had a white count of about 3.6 with a shift of 77% and the ultrasound showed inflammatory tissue over the antecubital fossa. The patient was consented for incision and drainage of left elbow abscess. The patient was explained the risks and benefits of the procedure. PROCEDURE IN DETAIL: The patient was brought to the operating room under general anesthesia. The left upper extremity was sterilely prepped and draped. After limb elevation, tourniquet was inflated to 250 mmHg. The patient had an open wound measuring about 3 cm over the antecubital fossa, which was opened up. Using blunt dissection, pockets of pus were noted underneath the veins and the subcutaneous tissue material was sent for culture and sensitivity. He had a pocket extension along the medial and lateral aspect of the hand and proximally to the elbow crease. There is also evidence of a thrombosed vein, which was tied and excised. The patient had necrotic skin edges and subcutaneous tissue which was debrided. Thorough wash was given using normal saline mixed with hydrogen peroxide. This was then followed by normal saline mixed with irrigant. After ensuring opening up of all pockets and washing thoroughly, packing of the wound was carried out with 1/4-inch iodoform packing material. Tourniquet was deflated at 18 minutes. Bleeding points were cauterized with bipolar cautery. A bulky dressing was applied which was held in place by Sof-Rol and bias hand wrap. The patient was recovered and sent to recovery in stable condition. Plan will be to continue with IV antibiotics and limb elevation. MD JUWAN Boyle , 10:03 PM , 10:27 PM
[2017-12-20] MEDS: Sod Chloride 0.9% Inj 1,000 ML IV.CONT SCH ×6 (00:12→21:04)
[2017-12-20] MEDS: Morphine Inj 4 MG/ML Vial IV.PUSH PRN ×4 (04:05→21:10)
[2017-12-20] MEDS: Senna/Docusate Sodium 8.6/50 MG Tablet PO SCH ×2 (08:11→21:03)
[2017-12-20 08:13] LABS: Hematocrit 39.4 % (39.0-51.0); Hemoglobin 13.6 gm/dL (13.0-17.0); Mean Corpuscular HGB Conc 34.6 % (32.0-36.0); Mean Corpuscular Hemoglobin 31.3 pg (27.0-34.0); Mean Corpuscular Volume 90.5 fL (80.0-100.0); Mean Platelet Volume 8.9 fL (7.0-11.0); Platelet Count 241 th/mm3 (150-450); Red Blood Count 4.36 mil/mm3 (4.50-5.90); White Blood Count 8.7 th/mm3 (4.0-11.0)
[2017-12-20 08:39] LABS: Albumin 2.8 g/dL (3.4-5.0); Calcium 8.7 mg/dL (8.5-10.1); Carbon Dioxide 25.9 meq/L (21.0-32.0); Potassium 3.9 meq/L (3.5-5.1)
[2017-12-20 08:42] LABS: Total Protein 6.5 g/dL (6.4-8.2)
[2017-12-20] MEDS: Vancomycin Inj 1,750 MG in Sodium Chlor 0.9% Inj 500 ML IV.SIG SCH ×3 (11:46)
--- NOTE | 2017-12-20 14:26 | P.PNIM ---
Subjective Interval history: Patient reports he is feeling okay. No fevers chills. Physical Exam Vital signs: Vital Signs 12/19/17 18:17 12/19/17 20:00 12/19/17 20:04 Temperature 97.5 F L Pulse Rate 89 78 Respiratory Rate 17 Blood Pressure 144/62 H Pulse Oximetry 95 96 12/19/17 22:00 12/19/17 22:10 12/19/17 22:15 Temperature 97.7 F Pulse Rate 106 H 97 H 95 H Respiratory Rate 12 11 L 16 Blood Pressure 112/69 120/73 121/79 Pulse Oximetry 99 96 12/19/17 22:30 12/19/17 23:46 12/20/17 00:00 Temperature 97.6 F 97.5 F L Pulse Rate 87 96 H 85 Respiratory Rate 22 17 Blood Pressure 128/80 139/65 Pulse Oximetry 96 96 12/20/17 04:00 12/20/17 08:00 12/20/17 12:00 Temperature 97.9 F 97.3 F L 97.4 F L Pulse Rate 95 H 81 89 Respiratory Rate 17 17 17 Blood Pressure 107/57 L 107/54 L 117/57 L Pulse Oximetry 94 L 97 94 L Intake & Output 12/19/17 12/20/17 12/20/17 18:59 06:59 18:59 Intake Total 2617.5 / 2617.5 1780 / 1780 2099 Output Total 3310 / 3310 Balance 2617.5 / 2617.5 -1530 / -1530 2099 Weight 95.3 kg Intake: IV 2617.5 / 2617.5 1100 / 1100 2099 / 2099 NS Inj 1,000 ML @ 100 mls/hr IV 2000 / 2000 1000 / 1000 1000 / 1000 .CONT .Q10H ANDREAS Rx#:[id number] Maxipime Inj 1,000 MG In NS Inj 100 / 100 100 / 100 100 / 100 100 ML @ 200 mls/hr IV.SIG Q12H ANDREAS Rx#:[id number] Vancomycin Inj 1,750 MG In NS 517.5 / 517.5 1000 / 1000 Inj 500 ML @ 250 mls/hr IV.SIG Q12H ANDREAS Rx#:[id number] Oral 480 / 480 Anesthesia Amount 200 / 200 Output: Urine 3300 / 3300 Estimated Blood Loss Other: Date of Last Bowel Movement 12/19/17 12/19/17 Narrative: GENERAL: Patient appears older than stated age SKIN: Left upper extremity is wrapped in postsurgical dressing and is in a sling. Neurovascularly intact at the fingers. CARDIOVASCULAR: Normal rate and regular rhythm without murmurs, gallops, or rubs. RESPIRATORY: Good respiratory efforts. Breath sounds equal and clear to auscultation bilaterally. Results - Labs CBC & Chem 7: 12/20/17 04:34 12/20/17 04:34 Laboratory Results - last 24 hr 12/20/17 12/20/17 04:34 04:34 WBC 8.7 RBC 4.36 L Hgb 13.6 Hct 39.4 MCV 90.5 MCH 31.3 MCHC 34.6 RDW 13.0 Plt Count 241 MPV 8.9 Sodium 143 Potassium 3.9 Chloride 108 H Carbon Dioxide 25.9 Anion Gap 9 BUN 11 Creatinine 0.92 Estimated GFR 86 L Random Glucose 140 H Calcium 8.7 Total Bilirubin 0.4 Direct Bilirubin 0.1 Indirect Bilirubin 0.3 AST 113 H ALT 320 H Alkaline Phosphatase 73 Total Protein 6.5 Albumin 2.8 L Microbiology 12/18/17 17:25 Blood - Peripheral Aerobic Blood Culture - Preliminary No growth in 2 days 12/18/17 17:25 Blood - Peripheral Anaerobic Blood Culture - Preliminary No growth in 2 days 12/18/17 17:10 Blood - Peripheral Aerobic Blood Culture - Preliminary No growth in 2 days 12/18/17 17:10 Blood - Peripheral Anaerobic Blood Culture - Preliminary No growth in 2 days 12/18/17 17:10 Abscess - Arm Gram Stain - Final 12/18/17 17:10 Abscess - Arm Wound Culture - Final Escherichia coli Escherichia coli isolate 2 Beta Strep not A,B or D 12/19/17 21:27 Abscess - Elbow Gram Stain - Final 12/19/17 21:27 Abscess - Elbow Fungal Smear - Final No fungal elements seen - Imaging Impressions Upper Extremity Ultrasound 12/19/17 14:26 CONCLUSION: 1. Inhomogeneous inflamed tissue without focal pocket of abscess. Assessment and Plan - Assessment (1) Sepsis Code(s): A41.9 - Sepsis, unspecified organism Status: Acute (2) Cellulitis Code(s): L03.90 - Cellulitis, unspecified Status: Acute (3) Elevated LFTs Code(s): R94.5 - Abnormal results of liver function studies Status: Acute (4) Hepatitis C Code(s): B19.20 - Unspecified viral hepatitis C without hepatic coma Status: Acute - Plan Sepsis secondary to left forearm necrotic wound/probable abscess/cellulitis. Patient reported he was bit by a spider. However he is positive for methamphetamines on tox screen. Suspect IV drug use. -Continue broad-spectrum antibiotics with cefepime and vancomycin. Preliminary culture growing gram-negative rods. Follow intraoperative cultures. -Appreciate hand surgery following. Patient is status post Incision, drainage and debridement antecubital fossa Hepatitis C/elevated LFTs: -Continue to monitor LFTs. Improving. -Patient was made aware of the diagnosis and advised to follow-up outpatient for treatment of hepatitis C. Suspected IV drug use: Patient denies this. Counseling provided on the detrimental effects of drug use. DVT Prophylaxis: SCD/Teds Discharge Planning: Continue IV antibiotics. Follow cultures. (2) Cellulitis Qualifiers: Site of cellulitis: extremity Site of cellulitis of extremity: upper extremity Laterality: left Qualified Code(s): L03.114 - Cellulitis of left upper limb
[2017-12-20] MEDS: Temazepam 15 MG Capsule PO PRN (22:36)
[2017-12-21] MEDS: Vancomycin Inj 1,750 MG in Sodium Chlor 0.9% Inj 500 ML IV.SIG SCH ×2 (00:53→13:52)
[2017-12-21] MEDS: Sod Chloride 0.9% Inj 1,000 ML IV.CONT SCH ×2 (00:54→18:38)
[2017-12-21] MEDS: Morphine Inj 4 MG/ML Vial IV.PUSH PRN (08:04)
[2017-12-21] MEDS: Senna/Docusate Sodium 8.6/50 MG Tablet PO SCH ×2 (08:05→21:07)
[2017-12-21] MEDS ORDERED: Pharmacy Ordered Lab Info OTHER ONE (10:45)
--- NOTE | 2017-12-21 12:34 | P.PN ---
Subjective Interval history: complains of mild pain no fever or numbness complaint with limb elevation Physical Exam Vital signs: Vital Signs 12/20/17 16:00 12/20/17 20:25 12/21/17 00:12 Temperature 97.8 F 97.6 F 97.5 F L Pulse Rate 95 H 81 82 Respiratory Rate 19 17 18 Blood Pressure 106/51 L 113/59 L 119/60 Pulse Oximetry 97 94 L 96 12/21/17 04:31 12/21/17 08:00 12/21/17 12:00 Temperature 97.1 F L 98.0 F 97.2 F L Pulse Rate 77 63 87 Respiratory Rate 18 20 16 Blood Pressure 119/67 132/63 129/60 Pulse Oximetry 96 98 99 Intake & Output 12/20/17 12/21/17 12/21/17 18:59 06:59 18:59 Intake Total 3117.5 / 3117.5 2880 / 2880 Output Total 325 / 325 Balance 2792.5 / 2792.5 2880 / 2880 Weight 95 kg Intake: IV 2617.5 / 2617.5 2100 / 2100 NS Inj 1,000 ML @ 100 mls/hr IV 1000 / 1000 2000 / 2000 .CONT .Q10H [facility]RE[facility] Rx#:[id number] Maxipime Inj 1,000 MG In NS Inj 100 / 100 100 / 100 100 ML @ 200 mls/hr IV.SIG Q12H [facility]RE[facility] Rx#:[id number] Vancomycin Inj 1,750 MG In NS 1517.5 / 1517.5 Inj 500 ML @ 250 mls/hr IV.SIG Q12H [facility]REAS Rx#:[id number] Oral 500 / 500 780 / 780 Output: Urine 325 / 325 Other: # Voids 3 4 Date of Last Bowel Movement 12/19/17 12/19/17 # Bowel Movements 1 Narrative: exam: left elbow packing in place decreased swelling surrounding induration noted minimal drainage with open wound intact distal sensation and circulation cultures: E.coli Results - Labs CBC & Chem 7: 12/20/17 04:34 12/20/17 04:34 Microbiology 12/19/17 21:27 Abscess - Elbow Gram Stain - Final 12/19/17 21:27 Abscess - Elbow Wound Culture - Preliminary Escherichia coli Beta Strep not A,B or D 12/18/17 17:25 Blood - Peripheral Aerobic Blood Culture - Preliminary No growth in 3 days 12/18/17 17:25 Blood - Peripheral Anaerobic Blood Culture - Preliminary No growth in 3 days 12/18/17 17:10 Blood - Peripheral Aerobic Blood Culture - Preliminary No growth in 3 days 12/18/17 17:10 Blood - Peripheral Anaerobic Blood Culture - Preliminary No growth in 3 days 12/18/17 17:10 Abscess - Arm Gram Stain - Final 12/18/17 17:10 Abscess - Arm Wound Culture - Final Escherichia coli Escherichia coli isolate 2 Beta Strep not A,B or D Assessment and Plan - Assessment (1) Abscess of antecubital fossa Code(s): L02.419 - Cutaneous abscess of limb, unspecified Status: Acute - Plan packing removed wound washed with normal saline and dry dressing applied limb elevation and elbow range of motion continue with antibiotics plan for discharge in 2-3 days time hand surgery will follow.
--- NOTE | 2017-12-21 15:48 | P.PNIM ---
Subjective Interval history: Patient reports he is feeling better today. Less painful. Physical Exam Vital signs: Vital Signs 12/20/17 16:00 12/20/17 20:25 12/21/17 00:12 Temperature 97.8 F 97.6 F 97.5 F L Pulse Rate 95 H 81 82 Respiratory Rate 19 17 18 Blood Pressure 106/51 L 113/59 L 119/60 Pulse Oximetry 97 94 L 96 12/21/17 04:31 12/21/17 08:00 12/21/17 12:00 Temperature 97.1 F L 98.0 F 97.2 F L Pulse Rate 77 63 87 Respiratory Rate 18 20 16 Blood Pressure 119/67 132/63 129/60 Pulse Oximetry 96 98 99 Intake & Output 12/20/17 12/21/17 12/21/17 18:59 06:59 18:59 Intake Total 3117.5 / 3117.5 3397.5 / 3397.5 Output Total 325 / 325 Balance 2792.5 / 2792.5 3397.5 / 3397.5 Weight 95 kg Intake: IV 2617.5 / 2617.5 2617.5 / 2617.5 NS Inj 1,000 ML @ 100 mls/hr IV 1000 / 1000 2000 / 2000 .CONT .Q10H [facility]RE[facility] Rx#:[id number] Maxipime Inj 1,000 MG In NS Inj 100 / 100 100 / 100 100 ML @ 200 mls/hr IV.SIG Q12H [facility]RE[facility] Rx#:[id number] Vancomycin Inj 1,750 MG In NS 1517.5 / 1517.5 517.5 / 517.5 Inj 500 ML @ 250 mls/hr IV.SIG Q12H [facility]RE[facility] Rx#:[id number] Oral 500 / 500 780 / 780 Output: Urine 325 / 325 Other: # Voids 3 4 Date of Last Bowel Movement 12/19/17 12/19/17 # Bowel Movements 1 Narrative: GENERAL: Patient appears older than stated age SKIN: Left upper extremity is wrapped in postsurgical dressing and is in a sling. Neurovascularly intact at the fingers. CARDIOVASCULAR: Normal rate and regular rhythm without murmurs, gallops, or rubs. RESPIRATORY: Good respiratory efforts. Breath sounds equal and clear to auscultation bilaterally. Results - Labs CBC & Chem 7: 12/20/17 04:34 12/20/17 04:34 Laboratory Results - last 24 hr 12/21/17 13:00 Vancomycin Trough 12.6 H Microbiology 12/19/17 21:27 Abscess - Elbow Acid Fast Bacilli Smear - Final No acid fast bacilli seen 12/19/17 21:27 Abscess - Elbow Gram Stain - Final 12/19/17 21:27 Abscess - Elbow Wound Culture - Preliminary Escherichia coli Beta Strep not A,B or D 12/18/17 17:25 Blood - Peripheral Aerobic Blood Culture - Preliminary No growth in 3 days 12/18/17 17:25 Blood - Peripheral Anaerobic Blood Culture - Preliminary No growth in 3 days 12/18/17 17:10 Blood - Peripheral Aerobic Blood Culture - Preliminary No growth in 3 days 12/18/17 17:10 Blood - Peripheral Anaerobic Blood Culture - Preliminary No growth in 3 days Assessment and Plan - Assessment (1) Sepsis Code(s): A41.9 - Sepsis, unspecified organism Status: Acute (2) Cellulitis Code(s): L03.90 - Cellulitis, unspecified Status: Acute (3) Elevated LFTs Code(s): R94.5 - Abnormal results of liver function studies Status: Acute (4) Hepatitis C Code(s): B19.20 - Unspecified viral hepatitis C without hepatic coma Status: Acute - Plan Sepsis secondary to left forearm necrotic wound/probable abscess/cellulitis. Patient reported he was bit by a spider. However he is positive for methamphetamines on tox screen. Suspect IV drug use. -Cultures growing E. coli and beta strep. Continue cefepime. Discontinue vancomycin. -Appreciate hand surgery following. Patient is status post Incision, drainage and debridement antecubital fossa - Continue IV antibiotics. Possible discharge in 2-3 days. Hepatitis C/elevated LFTs: -Continue to monitor LFTs. Improving. -Patient was made aware of the diagnosis and advised to follow-up outpatient for treatment of hepatitis C. Suspected IV drug use: Patient denies this. Counseling provided on the detrimental effects of drug use. DVT Prophylaxis: SCD/Teds Discharge Planning: Continue IV antibiotics. Hand surgery following. Possible discharge in 2-3 days. (2) Cellulitis Qualifiers: Site of cellulitis: extremity Site of cellulitis of extremity: upper extremity Laterality: left Qualified Code(s): L03.114 - Cellulitis of left upper limb
[2017-12-21] MEDS: Temazepam 15 MG Capsule PO PRN (21:07)
[2017-12-22] MEDS: Senna/Docusate Sodium 8.6/50 MG Tablet PO SCH ×2 (08:21→20:55)
--- NOTE | 2017-12-22 12:56 | P.PNIM ---
Subjective Interval history: Patient reports he is feeling better overall. Having less pain. No fevers or chills. Physical Exam Vital signs: Vital Signs 12/21/17 16:00 12/21/17 16:49 12/21/17 20:00 Temperature 97.6 F 97.2 F L Pulse Rate 74 65 69 Respiratory Rate 17 17 Blood Pressure 124/62 140/66 Pulse Oximetry 94 L 97 12/21/17 21:49 12/22/17 00:00 12/22/17 00:27 Temperature 97.5 F L Pulse Rate 69 88 72 Respiratory Rate 18 Blood Pressure 141/60 H Pulse Oximetry 97 12/22/17 04:00 12/22/17 04:19 Temperature 97.5 F L Pulse Rate 61 75 Respiratory Rate 18 Blood Pressure 125/65 Pulse Oximetry 97 Intake & Output 12/21/17 12/22/17 12/22/17 18:59 06:59 18:59 Intake Total 1700 / 1700 880 / 880 Balance 1700 / 1700 880 / 880 Weight 95 kg Intake: IV 1100 / 1100 100 / 100 NS Inj 1,000 ML @ 100 mls/hr IV 1000 / 1000 .CONT .Q10H [facility]RE[facility] Rx#:[id number] Maxipime Inj 1,000 MG In NS Inj 100 / 100 100 / 100 100 ML @ 200 mls/hr IV.SIG Q12H [facility]RE[facility] Rx#:[id number] Oral 600 / 600 780 / 780 Other: # Voids 5 4 Date of Last Bowel Movement 12/19/17 # Bowel Movements 0 Narrative: GENERAL: Patient appears older than stated age SKIN: Left upper extremity is wrapped in postsurgical dressing and is in a sling. Neurovascularly intact at the fingers. CARDIOVASCULAR: Normal rate and regular rhythm without murmurs, gallops, or rubs. RESPIRATORY: Good respiratory efforts. Breath sounds equal and clear to auscultation bilaterally. Results - Labs CBC & Chem 7: 12/20/17 04:34 12/20/17 04:34 Laboratory Results - last 24 hr 12/21/17 13:00 Vancomycin Trough 12.6 H Microbiology 12/18/17 17:25 Blood - Peripheral Aerobic Blood Culture - Preliminary No growth in 4 days 12/18/17 17:25 Blood - Peripheral Anaerobic Blood Culture - Preliminary No growth in 4 days 12/18/17 17:10 Blood - Peripheral Aerobic Blood Culture - Preliminary No growth in 4 days 12/18/17 17:10 Blood - Peripheral Anaerobic Blood Culture - Preliminary No growth in 4 days 12/19/17 21:27 Abscess - Elbow Gram Stain - Final 12/19/17 21:27 Abscess - Elbow Wound Culture - Preliminary Escherichia coli Beta Strep not A,B or D 12/19/17 21:27 Abscess - Elbow Acid Fast Bacilli Smear - Final No acid fast bacilli seen Assessment and Plan - Assessment (1) Sepsis Code(s): A41.9 - Sepsis, unspecified organism Status: Acute (2) Cellulitis Code(s): L03.90 - Cellulitis, unspecified Status: Acute (3) Elevated LFTs Code(s): R94.5 - Abnormal results of liver function studies Status: Acute (4) Hepatitis C Code(s): B19.20 - Unspecified viral hepatitis C without hepatic coma Status: Acute - Plan Sepsis secondary to left forearm necrotic wound/probable abscess/cellulitis. Patient reported he was bit by a spider. However he is positive for methamphetamines on tox screen. Suspect IV drug use. -Cultures growing E. coli and beta strep. Continue cefepime. Discontinue vancomycin. -Appreciate hand surgery following. Patient is status post Incision, drainage and debridement antecubital fossa - Continue IV antibiotics. Possible discharge in 24-48 hrs when cleared by hand surgery. Hepatitis C/elevated LFTs: -Continue to monitor LFTs. Improving. -Patient was made aware of the diagnosis and advised to follow-up outpatient for treatment of hepatitis C. Suspected IV drug use: Patient denies this. Counseling provided on the detrimental effects of drug use. DVT Prophylaxis: SCD/Teds Discharge Planning: Continue IV antibiotics. Hand surgery following. Possible discharge in 24-48 hrs. (2) Cellulitis Qualifiers: Site of cellulitis: extremity Site of cellulitis of extremity: upper extremity Laterality: left Qualified Code(s): L03.114 - Cellulitis of left upper limb
--- NOTE | 2017-12-22 17:41 | P.PN ---
Subjective Interval history: no new complaints no fever or numbness Physical Exam Vital signs: Vital Signs 12/21/17 20:00 12/21/17 21:49 12/22/17 00:00 Temperature 97.2 F L Pulse Rate 69 69 88 Respiratory Rate 17 Blood Pressure 140/66 Pulse Oximetry 97 12/22/17 00:27 12/22/17 04:00 12/22/17 04:19 Temperature 97.5 F L 97.5 F L Pulse Rate 72 61 75 Respiratory Rate 18 18 Blood Pressure 141/60 H 125/65 Pulse Oximetry 97 97 12/22/17 08:00 12/22/17 12:00 Temperature 97.2 F L 97.0 F L Pulse Rate 63 92 H Respiratory Rate 17 18 Blood Pressure 119/65 118/71 Pulse Oximetry 96 98 Intake & Output 12/21/17 12/22/17 12/22/17 18:59 06:59 18:59 Intake Total 1700 / 1700 880 / 880 Balance 1700 / 1700 880 / 880 Weight 95 kg Intake: IV 1100 / 1100 100 / 100 NS Inj 1,000 ML @ 100 mls/hr IV 1000 / 1000 .CONT .Q10H [facility]RE[facility] Rx#:[id number] Maxipime Inj 1,000 MG In NS Inj 100 / 100 100 / 100 100 ML @ 200 mls/hr IV.SIG Q12H [facility]RE[facility] Rx#:[id number] Oral 600 / 600 780 / 780 Other: # Voids 5 4 Date of Last Bowel Movement 12/19/17 # Bowel Movements 0 Narrative: examination of the left upper extremity: wound measuring 3 cm in diameter no drainage decreased swelling and erythema elbow range of motion painless intact sensation and circulation Results - Labs CBC & Chem 7: 12/20/17 04:34 12/20/17 04:34 Microbiology 12/19/17 21:27 Abscess - Elbow Gram Stain - Final 12/19/17 21:27 Abscess - Elbow Wound Culture - Final Escherichia coli Beta Strep not A,B or D Mixed Anaerobes 12/18/17 17:25 Blood - Peripheral Aerobic Blood Culture - Preliminary No growth in 4 days 12/18/17 17:25 Blood - Peripheral Anaerobic Blood Culture - Preliminary No growth in 4 days 12/18/17 17:10 Blood - Peripheral Aerobic Blood Culture - Preliminary No growth in 4 days 12/18/17 17:10 Blood - Peripheral Anaerobic Blood Culture - Preliminary No growth in 4 days 12/19/17 21:27 Abscess - Elbow Acid Fast Bacilli Smear - Final No acid fast bacilli seen Assessment and Plan - Assessment (1) Abscess of antecubital fossa Code(s): L02.419 - Cutaneous abscess of limb, unspecified Status: Acute - Plan wound washed with normal saline and dry dressing applied limb elevation and elbow range of motion continue with antibiotics cleared for discharge from hand surgery on po antibiotics daily dressing changes. patient has been taught. follow up in office in one week time
[2017-12-22] MEDS: Sod Chloride 0.9% Inj 1,000 ML IV.CONT SCH ×3 (20:49→20:59)
[2017-12-23] MEDS: Sod Chloride 0.9% Inj 1,000 ML IV.CONT SCH ×4 (01:08→11:18)
[2017-12-23] MEDS: Senna/Docusate Sodium 8.6/50 MG Tablet PO SCH (07:59)
[2017-12-23] MEDS ORDERED: Pharmacy Ordered Lab Info OTHER ONE (10:45)
--- NOTE | 2017-12-23 10:52 | P.DS ---
Date of admission: 12/18/17 19:12 Primary care physician: No Primary Care Physician Brief History from admission: This is a 52-year-old male with no reported PMH who presented to the ER with complaints of left arm swelling/redness x1 day. States he was bitten by a spider yesterday, now w/ significant redness/swelling and pustule w/ drainage. Denies fever or chills. Waldem[facility] IVDU. On arrival, BP 128/62, HR 124, O2 sat 98% on RA, Temp 102.1. WBC 14.4. Chemistry essentially unremarkable except for GFR 67. Lactic Acid 2.1. LFTs elevated, new in comparison to labs from 2015. S/p Blood/Wound Cultures, Vanc/Zosyn. DS: Diagnosis - Discharge Diagnosis (1) Sepsis Status: Acute (2) Cellulitis Status: Acute (3) Elevated LFTs Status: Acute (4) Hepatitis C Status: Acute (5) Abscess of antecubital fossa Status: Acute DS: Medications - Discharge Medications Prescriptions: cefuroxime axetil 500 mg PO Q12H #10 tab ibuprofen 800 mg PO TID PRN #20 tab PRN Reason: Pain DS: Summary Hospital Course: 52-year-old male with history of IV drug use admitted with sepsis secondary to abscess of the left forearm. Evaluation and treatment course detailed below: Sepsis secondary to left forearm necrotic wound/ abscess/cellulitis. Patient reported he was bit by a spider. However he is positive for methamphetamines on tox screen. Suspect IV drug use. -Cultures growing E. coli and beta strep. -Appreciate hand surgery following. Patient is status post Incision, drainage and debridement antecubital fossa -Patient treated with broad-spectrum IV antibiotics including cefepime and vancomycin. He is discharged on cefuroxime per culture sensitivities. Hepatitis C/elevated LFTs: -Continue to monitor LFTs. Improving. -Patient was made aware of the diagnosis and advised to follow-up outpatient for treatment of hepatitis C. Suspected IV drug use: Patient denies this. Counseling provided on the detrimental effects of drug use. - Time Spent with Patient Total time spent providing and/or coordinating discharge services: Less than 30 minutes - Quality: VTE Deep Vein Thrombosis/Pulmonary Embolism Present on Admission: No Exam Vital signs: Vital Signs 12/22/17 12:00 12/22/17 16:00 12/22/17 20:00 Temperature 97.0 F L 97.3 F L 97.3 F L Pulse Rate 92 H 87 86 Respiratory Rate 18 16 17 Blood Pressure 118/71 108/57 L 110/66 Pulse Oximetry 98 97 96 12/23/17 00:00 12/23/17 04:00 Temperature 97 F L 97.7 F Pulse Rate 76 74 Respiratory Rate 17 17 Blood Pressure 117/67 119/64 Pulse Oximetry 96 95 Intake & Output 12/22/17 12/23/17 12/23/17 18:59 06:59 18:59 Intake Total 620 / 620 440 / 440 Output Total 450 / 450 Balance 170 / 170 440 / 440 Intake: IV 200 / 200 Maxipime Inj 1,000 MG In NS Inj 200 / 200 100 ML @ 200 mls/hr IV.SIG Q12H ANDREAS Rx#:[id number] Oral 620 / 620 240 / 240 Output: Urine 450 / 450 Other: # Voids 3 Date of Last Bowel Movement 12/22/17 # Bowel Movements 0 Narrative: GENERAL: Patient appears older than stated age SKIN: Left upper extremity is wrapped in postsurgical dressing and is in a sling. Neurovascularly intact at the fingers. CARDIOVASCULAR: Normal rate and regular rhythm without murmurs, gallops, or rubs. RESPIRATORY: Good respiratory efforts. Breath sounds equal and clear to auscultation bilaterally. Results Procedures completed during hospitalization: Incision, drainage and debridement antecubital fossa of the left arm Labs on day of discharge: Preliminary micro results at discharge 12/18/17 17:25 Aerobic Blood Culture - Preliminary Blood - Peripheral No growth in 4 days Anaerobic Blood Culture - Preliminary No growth in 4 days 12/18/17 17:10 Aerobic Blood Culture - Preliminary Blood - Peripheral No growth in 4 days Anaerobic Blood Culture - Preliminary No growth in 4 days - Impressions ITS Impressions Chest X-Ray 12/18/17 17:00 CONCLUSION: No evidence of acute cardiopulmonary process. Upper Extremity Ultrasound 12/19/17 14:26 CONCLUSION: 1. Inhomogeneous inflamed tissue without focal pocket of abscess. Discharge Plan - Discharge Disposition Patient Disposition: 01 Discharge Home - Discharge Condition Condition: Stable - Discharge Order Discharge Orders: Discharge Order (Routine); Ordered 12/23/17 Ordered By: Michelle Parikh - Physicians Team Primary Care Provider: Primary Care Esperanza Coleman Attending Provider: Michelle Parikh Other Providers: Javy Simpson MD
== END 2017-12-23 12:47 | disposition home or self-care (01) ==
LOC: NEPE 16:24 → NEDA 16:24 → N07 19:35
PROVIDERS: ADMIT Family Medicine; ATTEND Family Medicine